=== PATIENT | male | born 1960 | race African-American/Black ===

== ENCOUNTER 2017-11-09 09:15 | Emergency (ER) | payer MEDICAID | END 2017-11-09 11:43 | disposition home or self-care (01) | LOC: D.ER 09:15 | DX: M54.5 Low back pain (principal); M51.36 Other intervertebral disc degeneration, lumbar region; K21.9 Gastro-esophageal reflux disease without esophagitis ==

== ENCOUNTER → 2018-07-25 08:01 | Outpatient (CLI) | payer MEDICAID | END | disposition home or self-care (01) | LOC: D.RT 08:00 | DX: R06.02 Shortness of breath (principal) ==

== ENCOUNTER 2018-09-01 01:12 | Emergency (ER) | payer MEDICAID ==
[~2018-09-01] VITALS: Ht 180.3 cm; Wt 79.5 kg
[2018-09-01 01:19] VITALS: Ht 180.3 cm; Wt 79.5 kg
[2018-09-01] MEDS ORDERED: MEDROL DOSE PACK4 MG PO (02:30)
[2018-09-01 02:47] VITALS: BP 158/72
== END 2018-09-01 02:47 | disposition home or self-care (01) ==
LOC: D.ER 01:12
DX: M25.561 Pain in right knee (principal); F17.200 Nicotine dependence, unspecified, uncomplicated